=== PATIENT | female | born 1975 | race Caucasian/White ===

== ENCOUNTER 2019-11-30 10:37 | Outpatient (CLI) | payer MEDICARE, MEDICAID, SELFPAY ==
--- NOTE | ~2019-11-30 | MM_ITS ---
EXAMINATION: MM screening mammo BI HISTORY: Screening mammogram TECHNIQUE: Craniocaudal and mediolateral oblique views were performed...... CAD analysis was submitte d and interpreted. COMPARISON: 09/21/2018 bilateral digital screening mammogram 09/29/2017 bilateral diagnostic digital mammogram 03/10/2017 bilateral diagnostic digital mammogram and Limited bilateral breast ultrasound 02/27/2017 bilateral digital screening mammogram BREAST PARENCHYMAL COMPOSITION: The breasts are heterogeneously dense, which may obscure small masses . FINDINGS: Local asymmetries are noted in the upper outer quadrant of the left breast. Diagnostic left mammogram is recommended, with ultrasound if required.. IMPRESSION: 1. Focal asymmetries of upper outer quadrant of left breast 2. Diagnostic left mammogram is recommended, with ultrasound if required BI-RADS Category 0: Incomplete: Needs additional imaging evaluation. Reviewed, dictated and finalized at location A.
== END 2019-11-30 10:38 | disposition home or self-care (01) ==
LOC: ANHIMG 10:45
PROVIDERS: PCP Internal Medicine; Visit Provider Obstetrics & Gynecology Gynecology
DX: Z12.31 Encounter for screening mammogram for malignant neoplasm of breast (principal); R92.8 Other abnormal and inconclusive findings on diagnostic imaging of breast
CPT/HCPCS: 77067

== ENCOUNTER 2019-12-23 12:11 | Outpatient (CLI) | payer MEDICARE, MEDICAID, SELFPAY ==
--- NOTE | ~2019-12-23 | MMUS_ITS ---
EXAMINATION: MM diagnostic mammo unilat LT, US breast LT limited HISTORY: Left breast asymmetry on screening mammogram TECHNIQUE: Additional 3-D tomosynthesis images of the left breast were performed and synthetic 2-D im ages were generated. CAD analysis was submitted and interpreted. High resolution limited left breast ultrasound was performed. COMPARISON: 11/30/2019, 09/21/2018, 09/29/2017, 02/27/2017 FINDINGS: MAMMOGRAPHIC FINDINGS: There is a return to baseline fibroglandular appearance with spot compression of the left breast. No suspicious mass, calcification, or architectural distortion is identified. ULTRASOUND: There is no evidence of focal abnormal solid or cystic lesion in the vicinity of the mammographic fin ding in question. IMPRESSION: 1. No mammographic or sonographic evidence of malignancy. 2. Recommend routine screening mammography in one year. BI-RADS Category 1: Negative Reviewed, dictated and finalized at location A. IMPRESSION: 1. No mammographic or sonographic evidence of malignancy. 2. Recommend routine screening mammography in one year. BI-RADS Category 1: Negative
== END 2019-12-23 12:12 | disposition home or self-care (01) ==
PROVIDERS: PCP Internal Medicine; Visit Provider Internal Medicine
DX: R92.8 Other abnormal and inconclusive findings on diagnostic imaging of breast (principal)
CPT/HCPCS: 76642; 77065

== ENCOUNTER 2020-12-27 10:04 | Outpatient (CLI) | payer MEDICARE, MEDICAID, SELFPAY ==
--- NOTE | ~2020-12-27 | MM_ITS ---
EXAMINATION: MM screening pam BI w madhav HISTORY: Screening TECHNIQUE: Craniocaudal and mediolateral oblique 3-D tomosynthesis images were obtained and synthetic 2-D images were generated. CAD analysis was submitted and interpreted. COMPARISON: Comparison to multiple prior studies sequentially, with oldest reviewed study dated 02/27. BREAST PARENCHYMAL COMPOSITION: There are scattered areas of fibroglandular density. FINDINGS: There is no evidence of suspicious mass, calcification, or architectural distortion to sugg est malignancy in either breast. There has been no suspicious interval change. IMPRESSION: 1. No mammographic evidence of malignancy. 2. Recommend routine screening mammography in one year. BI-RADS Category 1: Negative Reviewed, dictated and finalized at location A.
== END 2020-12-27 10:05 | disposition home or self-care (01) ==
LOC: ANHIMG 10:08
PROVIDERS: PCP Internal Medicine; Visit Provider Obstetrics & Gynecology Gynecology
DX: Z12.31 Encounter for screening mammogram for malignant neoplasm of breast (principal)
CPT/HCPCS: 77063; 77067

== ENCOUNTER 2021-10-15 02:38 | Day surgery (SDC) | payer MEDICARE, MEDICAID, SELFPAY ==
[2021-09-26 13:24] VITALS: BMI 28.4
[2021-10-15 08:05] VITALS: BP 145/62; PULSE 90; RESP 21; TEMP 36.4; O2SAT 100
[2021-10-15] MEDS: LACTATED RINGERS 1,000 ML 150 ML IV CONT (08:27)
--- NOTE | 2021-10-15 08:35 | P.PNAN_ITS ---
Anes - Initial Pre Proc Eval Procedure: Operation Date: 10/15/21 09:00 Proposed Procedures p Esophagogastroduodenoscopy - Mio Espinosa MD Date/Time: 10/15/21 08:35 Surgeon: Mio Espinosa MD Pre Op Diagnosis: dysphagia Patient Data Age: 46 Gender: F Height: 1.52 m Weight: 66.7 kg Last Vital Signs Temp 97.6 F 10/15/21 08:05 Pulse 90 10/15/21 08:05 Resp 21 H 10/15/21 08:05 BP 145/62 H 10/15/21 08:05 Pulse Ox 100 10/15/21 08:05 Allergies Allergy/AdvReac Type Severity Reaction Status Date / Time peanut Allergy Mild Verified 04/25/18 09:24 Cauliflower Allergy Mild Uncoded 04/25/18 09:24 Home Medications Medication Instructions Recorded Confirmed Type Colace 100 mg PO DAILY 09/26/21 09/26/21 History acyclovir 400 mg PO DAILY 09/26/21 09/26/21 History carbamazepine 200 mg PO BID 09/26/21 09/26/21 History Patient hx anesthesia problems: none Family hx anesthesia problems: none Results Review: All pre-operative results and documents have been reviewed as part of the pre-operative evaluation. PMFSH Social History Social History Smoking status: Never smoker Substance use: never Substance use type: does not use Living arrangements: long term Spiritual care concerns: No Anes - Eval Final PreProcedure Day of Procedure 10/15/21 08:35 Patient weight: overweight Heart: regular rate and rhythm Airway: Mallampati scale class II Neurological: alert and oriented Last oral intake: >/= 8 hours ASA classification: III Emergent: no Anesthetic plan: proceed Anesthesia type and monitoring: general GIVS and standard monitoring Results Review: All pre-operative results and documents have been reviewed as part of the pre-operative evaluation. Informed Consent: The patient's anesthetic plan and its attendant risks and benefits were discussed with the patient/family/POA. Questions were solicited and answers provided to the satisfaction of the patient/family/POA.
--- NOTE | 2021-10-15 08:54 | WPDGICN ---
Assessment and Plan Assessment and plan (1) Dysphagia: Code(s): R13.10 - Dysphagia, unspecified Status: Acute Assessment and Plan: EGD with possible biopsy or dilatation or cautery. GI Consult Note Consult date/time: 10/15/21 08:54 HPI: Mariella Lr is a 46 year old female Was been having difficulty swallowing. Recently she had been eating a prep so and could not swallow even saliva, was expect draining thick mucus for several hours and finally a piece of prep so came back up. Another episode Like this happened while eating a burger. the patient is not able to give much history herself. Her mother does not believe that she has had a great the heartburn Review of Systems Review of Systems: All systems reviewed & are unremarkable except as noted in HPI and below PMFSH Social History Social History Smoking status: Never smoker Substance use: never Substance use type: does not use Living arrangements: residential Spiritual care concerns: No Meds Home Medications and Allergies Home Medications Medication Instructions Recorded Confirmed Type Colace 100 mg PO DAILY 09/26/21 09/26/21 History acyclovir 400 mg PO DAILY 09/26/21 09/26/21 History carbamazepine 200 mg PO BID 09/26/21 09/26/21 History Allergies Allergy/AdvReac Type Severity Reaction Status Date / Time peanut Allergy Mild Verified 04/25/18 09:24 Cauliflower Allergy Mild Uncoded 04/25/18 09:24 Vital Signs Vital Signs - 24 hr 10/15/21 08:05 Temperature 36.4 C Pulse Rate 90 Respiratory Rate 21 H Blood Pressure 145/62 H Pulse Oximetry 100 Exam Resp: Auscultation: clear to auscultation bilaterally Cardio: Rate: regular rate Rhythm: regular rhythm GI: GI Palp: Yes Soft to palpation and No Tenderness to palpation present (GI)
[2021-10-15 09:11] VITALS: BP 128/65; PULSE 86; RESP 23; O2SAT 100
[2021-10-15 09:21] VITALS: BP 148/88; PULSE 74; RESP 19; O2SAT 100
[2021-10-15 09:31] VITALS: BP 149/97; PULSE 85; RESP 20; O2SAT 100
== END 2021-10-15 09:40 | disposition home or self-care (01) ==
PROVIDERS: PCP Internal Medicine; Visit Provider Internal Medicine Gastroenterology
PROC: 0DJ08ZZ Inspection of Upper Intestinal Tract, Via Natural or Artificial Opening Endoscopic (ICD-10-PCS; CPT 43235; principal; 2021-10-15 09:00)
DX: R13.19 Other dysphagia (principal); K22.2 Esophageal obstruction; K21.00 Gastro-esophageal reflux disease with esophagitis, without bleeding
CPT/HCPCS: 43239; 43249; 88305; C1726; J2704; J7120

== ENCOUNTER 2022-02-19 10:17 | Outpatient (CLI) | payer MEDICARE, MEDICAID, SELFPAY ==
--- NOTE | ~2022-02-19 | MM_ITS ---
EXAMINATION: MM screening pam BI w madhav HISTORY: Screening mammogram TECHNIQUE: Craniocaudal and mediolateral oblique 3-D tomosynthesis images were obtained and synthetic 2-D images were generated. CAD analysis was submitted and interpreted. COMPARISON: 12/27/2020 bilateral screening mammogram 12/23/2019 diagnostic left mammogram and limited left breast ultrasound examination 11/30/2019, 09/21/2018 bilateral screening mammogram examinations BREAST PARENCHYMAL COMPOSITION: The breasts are heterogeneously dense, which may obscure small masses . FINDINGS: Limited examination due to patient condition, including limited depth particularly on crani ocaudal views. There is no evidence of suspicious mass, calcification, or architectural distortion to suggest malignancy in either breast. There has been no suspicious interval change. IMPRESSION: 1. No mammographic evidence of malignancy. 2. Recommend routine screening mammography in one year. BI-RADS Category 1: Negative Reviewed, dictated and finalized at location A.
== END 2022-02-19 10:18 | disposition home or self-care (01) ==
PROVIDERS: PCP Internal Medicine; Visit Provider Internal Medicine
DX: Z12.31 Encounter for screening mammogram for malignant neoplasm of breast (principal)
CPT/HCPCS: 77063; 77067

== ENCOUNTER 2023-04-11 09:01 | Outpatient (CLI) | payer MEDICARE, MEDICAID, SELFPAY ==
--- NOTE | ~2023-04-11 | MM_ITS ---
EXAMINATION: MM screening mammo BI HISTORY: Screening mammogram TECHNIQUE: Full field digital craniocaudal and mediolateral oblique views of both breasts were obtain ed. CAD analysis was submitted and interpreted. COMPARISON: 02/19/2022, 02/27/2021, 12/23/2019, 11/30/2019 BREAST PARENCHYMAL COMPOSITION: The breasts are heterogeneously dense, which may obscure small masses . FINDINGS: No suspicious mass, calcification, or architectural distortion are identified in either roscoe ast to suggest malignancy. There has been no suspicious interval change. IMPRESSION: 1. No mammographic evidence of malignancy. Recommend routine screening mammography in one year. BI-RADS Category 1: Negative Reviewed, dictated and finalized at location A. IMPRESSION: 1. No mammographic evidence of malignancy. Recommend routine screening mammogra phy in one year. BI-RADS Category 1: Negative
== END 2023-04-11 09:02 | disposition home or self-care (01) ==
LOC: ANHIMG 09:03
PROVIDERS: PCP Internal Medicine; Visit Provider Obstetrics & Gynecology Gynecology
DX: Z12.31 Encounter for screening mammogram for malignant neoplasm of breast (principal)
CPT/HCPCS: 77067

== ENCOUNTER 2023-07-16 01:34 | Day surgery (SDC) | payer MEDICARE, MEDICAID, SELFPAY ==
[2023-06-20 14:01] VITALS: BMI 28.2
--- NOTE | 2023-07-14 11:52 | SUR.PREOP ---
Patient called regarding upcoming procedure. Reviewed preop instructions, appointment times, and procedure prep.
--- NOTE | 2023-07-15 16:14 | PM.HPGS ---
History of Present Illness History of Present Illness Consent: Risks, benefits, and alternatives have been discussed and questions answered. Patient agrees to proceed with procedure. Chief complaint: other fecal abnormalities, Dysphagia unspecified Narrative: Mariella Lr is a 48 year old female with dysphagia for solid food. 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 She also recently performed a Cologuard test which was positive. Review of Systems Review of Systems: All systems reviewed & are unremarkable except as noted in HPI and below [facility] Social History Social History Smoking status: Never smoker Substance use: never Substance use type: does not use Living arrangements: intermediate Additional living arrangements comments: PATIENT WILL BE STAYING WITH MOTHER AND FATHER FOR A COUPLE DAYS BEFORE AND AFTER PROCEDURE Spiritual care concerns: No Meds Home Medications and Allergies Home Medications Medication Instructions Recorded Confirmed Type Colace 100 mg PO PRN 09/26/21 06/20/23 History acyclovir 400 mg tablet 400 mg PO DAILY 09/26/21 06/20/23 History carbamazepine 100 mg chewable 200 mg PO BID 09/26/21 06/20/23 History tablet medroxyprogesterone 150 mg/mL 150 mg IM [id number] 05/27/23 06/20/23 History intramuscular suspension pantoprazole 20 mg tablet,delayed 20 mg PO QAM 05/27/23 06/20/23 History release Allergies Allergy/AdvReac Type Severity Reaction Status Date / Time peanut Allergy Mild Unknown Verified 07/16/23 06:28 Cauliflower Allergy Mild Unknown Uncoded 07/16/23 06:28 Exam Const: General: alert Orientation/consciousness: patient oriented x3 Resp: Auscultation: clear to auscultation bilaterally Cardio: Rhythm: regular rhythm GI: GI Palp: Yes Soft to palpation and No Tenderness to palpation present (GI) Neuro: General: patient oriented x3 Assessment and Plan Assessment and plan (1) Dysphagia: Code(s): R13.10 - Dysphagia, unspecified Status: Acute Assessment and Plan: EGD with possible biopsy or dilatation or cautery. (2) Positive colorectal cancer screening using Cologuard test: Code(s): R19.5 - Other fecal abnormalities Status: Acute Assessment and Plan: Colonoscopy with possible biopsy or polypectomy or cautery or injection of substances.
[2023-07-16 06:32] VITALS: BP 153/79; PULSE 98; RESP 18; TEMP 36.4; O2SAT 98
[2023-07-16] MEDS: MIDAZOLAM HCL (*CRX) 2 MG/2 ML VIAL IV PUSH (06:45)
[2023-07-16] MEDS: LACTATED RINGERS 1,000 ML 150 ML IV CONT (06:49)
--- NOTE | 2023-07-16 07:05 | SUR.PREOP ---
Pt unable to give a urine specimen per mother due to developmental disability. Dr. Yip anesthesiologist notified. No new orders received.
--- NOTE | 2023-07-16 07:07 | WPDANESEPPF ---
Anes - Initial Pre Proc Eval Procedure: Operation Date: 07/16/23 07:30 Proposed Procedures p Esophagogastroduodenoscopy & Colonoscopy - Mio Esipnosa MD Date/Time: 07/16/23 07:07 Surgeon: Mio Espinosa MD Pre Op Diagnosis: other fecal abnormalities, Dysphagia unspecified Patient Data Age: 48 Gender: F Height: 1.52 m Weight: 63.3 kg Last Vital Signs Temp 97.6 F 07/16/23 06:32 Pulse 98 07/16/23 06:32 Resp 18 07/16/23 06:32 BP 153/79 H 07/16/23 06:32 Pulse Ox 98 07/16/23 06:32 O2 Del Method Room Air 07/16/23 06:32 Allergies Allergy/AdvReac Type Severity Reaction Status Date / Time peanut Allergy Mild Unknown Verified 07/16/23 06:28 Cauliflower Allergy Mild Unknown Uncoded 07/16/23 06:28 Home Medications Medication Instructions Recorded Confirmed Type Colace 100 mg PO PRN 09/26/21 06/20/23 History acyclovir 400 mg tablet 400 mg PO DAILY 09/26/21 06/20/23 History carbamazepine 100 mg chewable 200 mg PO BID 09/26/21 06/20/23 History tablet medroxyprogesterone 150 mg/mL 150 mg IM [id number] 05/27/23 06/20/23 History intramuscular suspension pantoprazole 20 mg tablet,delayed 20 mg PO QAM 05/27/23 06/20/23 History release Patient hx anesthesia problems: none Family hx anesthesia problems: none Results Review: All pre-operative results and documents have been reviewed as part of the pre-operative evaluation. [facility] Social History Social History Smoking status: Never smoker Substance use: never Substance use type: does not use Living arrangements: usp Additional living arrangements comments: PATIENT WILL BE STAYING WITH MOTHER AND FATHER FOR A COUPLE DAYS BEFORE AND AFTER PROCEDURE Spiritual care concerns: No Anes - Eval Final PreProcedure Day of Procedure 07/16/23 07:07 Patient weight: overweight Heart: regular rate and rhythm Lungs: clear to auscultation Airway: Mallampati scale class II Neurological: alert and oriented Last oral intake: >/= 8 hours ASA classification: III Emergent: no Anesthetic plan: proceed Anesthesia type and monitoring: general GIVS and standard monitoring Results Review: All pre-operative results and documents have been reviewed as part of the pre-operative evaluation. Informed Consent: The patient's anesthetic plan and its attendant risks and benefits were discussed with the patient/family/POA. Questions were solicited and answers provided to the satisfaction of the patient/family/POA.
--- NOTE | 2023-07-16 07:47 | SUR.OPER ---
EGD: [id number] COLON: Start 742
[2023-07-16 08:02] VITALS: BP 149/82; PULSE 78; RESP 18; O2SAT 99
[2023-07-16 08:12] VITALS: BP 112/80; PULSE 92; RESP 18; O2SAT 91
[2023-07-16 08:22] VITALS: BP 139/95; PULSE 85; RESP 18; O2SAT 95
== END 2023-07-16 08:33 | disposition home or self-care (01) ==
PROVIDERS: PCP Internal Medicine; Visit Provider Internal Medicine Gastroenterology
PROC: 0DJ08ZZ Inspection of Upper Intestinal Tract, Via Natural or Artificial Opening Endoscopic (ICD-10-PCS; CPT 43235; principal; 2023-07-16 07:30)
DX: R19.5 Other fecal abnormalities (principal); K62.1 Rectal polyp; K64.8 Other hemorrhoids; K22.2 Esophageal obstruction
CPT/HCPCS: 43249; 45385; 88305; C1726; J2001; J2250; J2704; J7120

== ENCOUNTER 2024-05-14 08:48 | Outpatient (CLI) | payer MEDICARE, MEDICAID, SELFPAY ==
--- NOTE | ~2024-05-14 | MM_ITS ---
EXAMINATION: MM screening pam BI w madhav HISTORY: Screening TECHNIQUE: Craniocaudal and mediolateral oblique 3-D tomosynthesis images were obtained and synthetic 2-D images were generated. CAD analysis was submitted and interpreted. COMPARISON: Comparison to multiple prior studies sequentially, with oldest reviewed study dated 09/21. BREAST PARENCHYMAL COMPOSITION: Dense: The breasts are heterogeneously dense, which may obscure small masses FINDINGS: There is no evidence of suspicious mass, calcification, or architectural distortion to sugg est malignancy in either breast. There has been no suspicious interval change. IMPRESSION: 1. No mammographic evidence of malignancy. 2. Recommend routine screening mammography in one year. BI-RADS Category 1: Negative Reviewed, dictated and finalized at location B. WORKER
== END 2024-05-14 08:49 | disposition home or self-care (01) ==
LOC: ANHIMG 08:51
PROVIDERS: PCP Internal Medicine; Visit Provider Obstetrics & Gynecology Gynecology
DX: Z12.31 Encounter for screening mammogram for malignant neoplasm of breast (principal)
CPT/HCPCS: 77063; 77067

== ENCOUNTER 2024-08-03 00:56 | Day surgery (SDC) | payer MEDICARE, MEDICAID, SELFPAY ==
[2024-07-19 13:52] VITALS: BMI 28.3
--- OUTSIDE RECORDS SUMMARY | 2024-08-03 00:59 | XMS_ITS | Data Portability ---
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 Performance Test Architect variances may occur. Despite proofreading, typographical errors may occur. Occasional wrong-word or 'bwkho-h-kers' substitutions may have occurred due to the inherent limitations of voice recording. Read the chart carefully and recognize, using context, where substitutions have occurred. Not available 10/16/2023 10:03:42 01/01/2024 01/01/2024 This note is dictated and transcribed by [email or web address]. Performance Test Architect variances may occur. Despite proofreading, typographical errors may occur. Occasional wrong-word or 'xlkjl-h-vvqw' substitutions may have occurred due to the inherent limitations of voice recording. Read the chart carefully and recognize, using context, where substitutions have occurred. Not available 01/01/2024 09:59:34 03/11/2024 03/11/2024 This note is dictated and transcribed by [email or web address]. Performance Test Architect variances may occur. Despite proofreading, typographical errors may occur. Occasional wrong-word or 'gzsbc-e-kupb' substitutions may have occurred due to the inherent limitations of voice recording. Read the chart carefully and recognize, using context, where substitutions have occurred. Not available 03/11/2024 10:40:14 05/18/2024 05/18/2024 This note is dictated and transcribed by [employer]Modal [employer] Software. Performance Test Architect variances may occur. Despite proofreading, typographical errors may occur. Occasional wrong-word or 'nzxko-s-qzao' substitutions may have occurred due to the inherent limitations of voice recording. Read the chart carefully and recognize, using context, where substitutions have occurred. lexie Not available 05/18/2024 10:08:11 07/27/2024 07/27/2024 This note is dictated and transcribed by [employer] Direct Software. Performance Test Architect variances may occur. Despite proofreading, typographical errors may occur. Occasional wrong-word or 'irqko-r-rfnf' substitutions may have occurred due to the inherent limitations of voice recording. Read the chart carefully and recognize, using context, where substitutions have occurred. lexie Not available 07/27/2024 10:40:56 Plan of Treatment Reminders Order Date Submit Date Provider Last Modified By Organization Details Last Modified Time Details Appointments Establish ed Patient 15 2024 09:00A M Ariel Cordova DPM Not available Not available Not available Establish ed Patient 15 2024 09:00A M Airel Cordova DPM Not available Not available Not available Lab None recorded. Referral None recorded. Procedures None recorded. Surgeries None recorded. Imaging None recorded. Medication Orders None recorded. Patient TargetsNo targets recorded. Patient InstructionsNo instructions recorded. Reason for Referral None Reported. Problems Name Problem SNOMED Code Status Onset Date Resolution Date Notes Provider Name and Address Organization Details Recorded Time Foot callus 093781075 Active 2022 Ariel Cordova DPM [address] [facility] [address], [place], [address] , [facility] [employer] 3 09:46:49 Seizure disorder 929625742 Active Not Available [facility] 3 03:06:17 Dry skin 22917918 Active 2018 Not Available [facility] 3 03:06:17 Mammography abnormal 077629943 Active Not Available [facility] 3 03:06:17 Rigid flat foot 023084702 Active Not Available [facility] 3 03:06:17 Intellectual functioning disability 084527290 Active Not Available [facility] 3 03:06:17 On examination - rash present Active Not Available [facility] 3 03:06:17 Bronchitis 82274779 Active Not Available [facility] 3 03:06:17 Ingrowing toenail 859838793 Active 2018 Not Available [facility] 3 03:06:17 Onychomycosis 171617040 Active 2019 Not Available [facility] 3 03:06:17 Anxiety 49558209 Active Not Available [facility] 3 03:06:17 Upper respiratory infection 95444293 Active Not Available [facility] 3 03:06:17 Tinea pedis 6753675 Active 2020 Not Available [facility] 3 03:06:17 Allergic rhinitis 01555240 Active Not Available [facility] 3 03:06:18 Herpes simplex 45770431 Active Not Available [facility] 3 03:06:18 Conjunctiviti s 5838208 Active Not Available [facility] 3 03:06:18 Dystrophia unguium 88378184 Active 2023 Ariel Cordova DPM [address], [place], [address] , [employer] 4 10:03:47 Congenital pes planus 31549254 Active 2023 Ariel Cordova DPM [address], [place], [address] , [facility] 4 10:03:55 Unable to cut own toenails 997315446 Active 2023 Ariel Cordova DPM [address], [place], [address] , [facility] 4 09:59:47 Problem Notes None recorded. Procedures Surgical History Date Name Laterality Status Provider Name and Address Organization Details Recorded Time 5 Nail Debridement completed Ariel Cordova DPM [address], [place], [address], [facility] 07/27/2024 10:40:50 4 Nail Debridement completed Ariel Cordova DPM [address], [place], [address], [facility] 05/18/2024 10:08:01 4 Nail Debridement completed Ariel Cordova DPM [address], [place], [address], [facility] 03/11/2024 10:40:00 4 Nail Debridement completed Ariel Cordova DPM [address], [place], [address], [place] [facility] [place] [facility] 01/01/2024 09:59:26 4 Nail Debridement completed Ariel Cordova DPM [address], [place], [address], [facility] 10/16/2023 10:04:51 4 Nail Debridement completed Ariel Cordova DPM [address], [place], [address], [facility] 07/28/2023 09:43:58 3 Nail Debridement completed Ariel Cordova DPM [address], [place], [address], [place] [facility] 05/12/2023 09:29:20 3 Nail Debridement completed Ariel Cordova DPM [address], [place], [address], [facility] [place] [facility] 03/06/2023 09:32:17 3 Nail Debridement completed Ariel Cordova DPM [address], [place], [address], [facility] 01/02/2023 09:49:52 3 Nail Debridement completed Ariel Cordova DPM [address], [place], [address], [facility] 10/31/2022 09:36:21 3 Nail Debridement completed Ariel Cordova DPM [address], [place], [address], [facility] [employer] 08/29/2022 09:46:18 Imaging Results None recorded. Procedure Notes None recorded. Medical Equipment None Reported. Allergies Allergen ID Allergen Name Allergen Category Reaction Reaction Severity Criticality Documentation Date Start Date Code Code System Note Provider Name and Address Organization Details Recorded Time 5421 peanut oil food,medi cation Not available Not available Not available 08/07/2022 18540 RxNorm Not Available [facility] 3 03:12:36 5422 cauliflow er allergeni c extract food Not available Not available Not available 08/07/2022 29361 1 RxNorm Not Available [facility] 3 03:12:36 Medications Name Sig Start Date Stop Date Status Note LastModified by Organization Details LastModified Time amoxicill in 500 mg capsule active Not Available Not Available Not Available prednison e 10 mg tablet Take by oral route. active please give liquid equivale nt Not Available Not Available Not Available ammonium lactate 12 % lotion Apply to calluses of feet 1-2 times daily active Not Available Not Available No t Available ofloxacin 0.3 % eye drops 10/15 completed Not Available Not Available Not Available vitamin A and D topical ointment 2018 active Not Available Not Available Not Avai lable Milk of Magnesia 400 mg/5 mL oral suspensio n 10/15 completed Not Available Not Available Not Available Zithromax Z-Julio 250 mg tablet Take 2 TABLEts the first day then 1/day 01/10 completed Not Available Not Available Not Available bacitraci n 500 unit/gram topical ointment 03/26 completed Not Available Not Available Not Available bacitraci n zinc 500 unit/gram topical ointment active Not Available Not Available Not Available prednison e 5 mg/5 mL oral solution 10/15 completed Not Available Not Available Not Available acyclovir 400 mg tablet Take 1 tablet every day by oral route for 10 days. active Not Available Not Available No t Available sulfameth oxazole 800 mg-trimet hoprim 160 mg tablet 01/21 completed Not Available Not Available Not Available acyclovir 800 mg tablet active Not Available Not Available Not Available pantopraz ole 20 mg tablet,de layed release active Not Available Not Available Not Available amoxicill in 250 mg chewable tablet TAKE 2 TABLETS BY MOUTH THREE TIMES DAILY FOR 20 DAYS 10/15 completed Not Available Not Available Not Available amoxicill in 250 mg/5 mL oral suspensio n active Not Available Not Available Not Available benzonata te 100 mg capsule TAKE 1 CAPSULE BY MOUTH THREE TIMES DAILY FOR COUGH 10/15 completed Not Available Not Available Not Available hydrocort isone 1 % topical cream APPLY TOPICALL Y TO MINOR RASH NEEDED UP TO 4 X DAILY NOTIFY RN IF USED MORE THAN 48 HOURS 10/15 completed Not Available Not Available Not Available nystatin 100,000 unit/gram topical cream APPLY TO THE AFFECTED AREA(S) BY TOPICAL ROUTE 2 TIMES PER DAY 10/15 completed Not Available Not Available Not Available clotrimaz ole-betam ethasone 1 %-0.05 % topical cream 10/15 completed Not Available Not Available Not Available carbamaze pine 100 mg chewable tablet active Not Available Not Available Not Available Mapap (acetamin ophen) 325 mg tablet 10/15 completed Not Available Not Available Not Available docusate sodium 100 mg capsule Take 1 capsule every day by oral route. active Not Available Not Available No t Available Banophen 25 mg capsule 01/10 completed Not Available Not Available Not Available hydrocort isone 2.5 % topical cream APPLY TO THE AFFECTED AREA(S) BY TOPICAL ROUTE ONCE DAILY 10/15 completed Not Available Not Available Not Available lorazepam 1 mg tablet to take one tablet prior to dental appt active Not Available Not Available No t Available diazepam 10 mg tablet TAKE 1 TAB BY MOUTH 30 MIN PRIOR TO DENTAL WORK 10/15 completed Not Available Not Available Not Available epinephri ne 0.3 mg/0.3 mL injection , auto-inje ctor active Not Available Not Available Not Available azithromy judy 200 mg/5 mL oral suspensio n 10/15 completed Not Available Not Available Not Available Robafen 100 mg/5 mL oral liquid Take 10 mL every 4 hours by oral route for 7 days. active Not Available Not Available No t Available Tegretol 200 mg tablet Take 1 tablet every 12 hours by oral route. 12/31 completed Not Available Not Available Not Available ibuprofen 100 mg/5 mL oral suspensio n 10/15 completed Not Available Not Available Not Available ketoconaz ole 2 % topical cream apply to the affected toenails daily active Not Available Not Available No t Available fluticaso ne propionat e 50 mcg/actua tion nasal spray,radha pension Inhale 2 sprays every day by intranas al route in the evening. 10/15 completed Not Available Not Available Not Available clotrimaz ole 1 % topical cream APPLY TO THE AFFECTED AND SURROUND ING AREAS OF SKIN BY TOPICAL ROUTE 2 TIMES PER DAY IN THE MORNING AND EVENING active Not Available Not Available No t Available medroxypr ogesteron e 150 mg/mL intramusc ular suspensio n 01/21 completed Not Available Not Available Not Available diazepam 5 mg tablet TAKE 2 TABLET BY MOUTH X 1 PRIOR TO DENTAL VISIT. active Not Available Not Available No t Available Children' s Sudafed 15 mg/5 mL oral liquid TAKE 20ML (60MG) EVERY 6 HOURS NEEDED FOR CONGESTI ON. 10/15 completed Not Available Not Available Not Available Mucinex 600 mg tablet, extended release Take 1 tablet twice a day by oral route. active the equivale nt robituss in 10 cc q 4 DS aware Not Available Not Available Not Available medroxypr ogesteron e 150 mg/mL intramusc ular syringe active Not Available Not Available Not Available PreviDent 5000 Plus 12/31 completed Not Available Not Available Not Available Nizoral 12/31 completed Not Available Not Available Not Available Cetaphil active Not Available Not Avai lable Not Available sodium fluoride 1.1 % dental paste active Not Available Not Available Not Available neomycin 1.75 mg-polymy erick 10,000 unit-gram icidin 0.025mg/m L eye drops Apply 3 drops 4 times a day by ophthalm ic route. 10/15 completed Not Available Not Available Not Available Children' s Cleo Allergy 30 mg/5 mL oral suspensio n TAKE 10 ML EVERY 12 HOURS. 10/15 completed Not Available Not Available Not Available [facility] COVID-19 Vaccine (PF) 30 mcg/0.3 mL IM susp (purple) PHARMACY ADMINIST ERED 10/15 completed Not Available Not Available Not Available Vitals Date Recorded Body height Heart rate Respiratory rate Oxygen saturation Oxygen saturation in Arterial blood by Pulse oximetry Provider Name and Address Organization Details Last Updated DateTime 4 149.86 cm 79 /min 14 /min 98 % 98 % Tash Jay [employer] [facility] [employer] [facility] 4 09:23:04 Date Recorded Body height Body mass index (BMI) Body weight Respiratory rate Heart rate Body temperature Oxygen saturation Oxygen saturation in Arterial blood by Pulse oximetry Systolic blood pressure Diastolic blood pressure Provider Name and Address Organization Details Last Updated DateTime 4 149.86 cm 29.3 kg/m2 45795.8 9 g 14 /min 100 /min 98 [degF] 98 % 98 % 130 mm[Hg] 80 mm[Hg] Frida Fernando [facility] [employer] [facility] 4 09:44:38 Date Recorded Body height Body mass index (BMI) Body weight Heart rate Respiratory rate Oxygen saturation Oxygen saturation in Arterial blood by Pulse oximetry Provider Name and Address Organization Details Last Updated DateTime 4 149.86 cm 29.3 kg/m2 31637.8 9 g 89 /min 14 /min 98 % 98 % Tash Thompson [employer] [facility] [employer] [facility] 4 09:49:29 Date Recorded Body height Body mass index (BMI) Body weight Heart rate Respiratory rate Oxygen saturation Oxygen saturation in Arterial blood by Pulse oximetry Provider Name and Address Organization Details Last Updated DateTime 4 149.86 cm 29.3 kg/m2 78578.8 9 g 82 /min 14 /min 98 % 98 % Tash Thompson [employer] [facility] [employer] [facility] 4 09:43:03 Date Recorded Body height Heart rate Respiratory rate Body temperature Oxygen saturation Oxygen saturation in Arterial blood by Pulse oximetry Systolic blood pressure Diastolic blood pressure Provider Name and Address Organization Details Last Updated DateTime 5 149.86 cm 105 /min 15 /min 98 [degF] 99 % 99 % 136 mm[Hg] 97 mm[Hg] Ava Rick[employer] [facility] [employer] [facility] 5 10:24:48 Social History None recorded. Functional Status None recorded. Mental Status None recorded. Family History Relationship Description Onset Age of this Age Resolved Age Notes LastModified by Organization Details LastModified Time Father Malignant tumor of prostate [id number] Not available 12/08 09:45:27 Medical History Condition Response SEIZURES/EPILEPSY Y HERPES Y Gynecological HistoryNo gynecological history recorded. Obstetrics History GPAL:G 0 P 0 0 0 0 Past Encounters Encounter ID Performer Location Encounter Start Date Encounter Closed Date Diagnosis/Indication Diagnosis SNOMED-CT Code Diagnosis ICD10 Code Diagnosis Note [id number] [facility] [address] [place] [address] 09/14/2020 00:00:00 09/15/2020 11:09:34 [id number] [facility] [address] [place] [address] 11/16/2020 00:00:00 11/17/2020 08:16:02 [id number] [facility] [address] [place] [address] 01/11/2021 00:00:00 01/11/2021 10:17:22 [id number] [facility] [address] [place] [address] 03/26/2021 00:00:00 03/27/2021 07:37:57 [id number] [facility] [address] [place] [address] 05/28/2021 00:00:00 05/28/2021 10:38:15 [id number] [facility] [address] [place] [address] 08/02/2021 00:00:00 08/03/2021 10:09:09 [id number] [facility] [address] [place] [address] 10/04/2021 00:00:00 10/04/2021 10:40:58 [id number] [facility] [address] [place] [address] 12/06/2021 00:00:00 12/06/2021 10:39:19 [id number] [facility] [address] [place] [address] 01/31/2022 00:00:00 02/03/2022 11:50:24 [id number] [facility] [address] [place] [address] 2022 00:00:00 2022 10:28:03 [id number] [facility] [address] [place] [address] 06/20/2022 00:00:00 06/20/2022 09:49:02 [id number] Ariel Cordova DPM [facility] [place] [address] [place] [address] 08/29/2022 09:20:34 08/29/2022 11:27:31 Onychomycosis 623281321 B35.1 Z74.1 Continue ketoconazo le topicallyN ails debrided without incidentFo llow-up in 2 months Foot callus 092381099 L8 4 continue supportive shoe gearApply Amlactin daily twiceeduca ivy on use of pumice stoneIn follow-up as needed [id number] Ariel Cordova DPM [facility] [place] [address] [place] [address] 10/31/2022 09:17:25 10/31/2022 09:41:26 Onychomycosis 645105272 B35.1 Z74.1 Continue ketoconazo le topicallyN ails debrided without incidentFo llow-up in 2 months Foot callus 211943932 L8 4 continue orthotics [id number] [facility] [place] [address] [place] [address] 01/02/2023 09:35:32 01/02/2023 10:11:49 Onychomycosis 142907631 B35.1 Z74.1 Continue ketoconazo le topicallyN ails debrided without incidentFo llow-up in 2 months Foot callus 829353687 L8 4 continue orthotics [id number] Ariel Cordova DPM [facility] [place] [address] [place] [address] 03/06/2023 09:10:58 03/06/2023 09:43:56 Onychomycosis 536143332 B35.1 Z74.1 Continue ketoconazo le topicallyN ails debrided without incidentFo llow-up in 2 months Foot callus 814937276 L8 4 continue orthotics [id number] Ariel Cordova DPM [facility] [place] [address] [place] [address] 05/12/2023 09:07:03 05/12/2023 10:05:04 Onychomycosis 333106033 B35.1 Z74.1 Continue ketoconazo le topicallyN ails debrided without incidentFo llow-up in 2 months [id number] Ariel Cordova DPM [facility] [place] [address] [place] [address] 07/28/2023 09:08:19 07/28/2023 09:52:08 Onychomycosis 261523546 B35.1 Z74.1 Continue ketoconazo le topicallyN ails debrided without incidentFo llow-up in 2 months Unable to cut own toenails 003619721 Z74.1 [id number] Ariel Cordova DPM [facility] [place] [address] [place] [address] 10/16/2023 09:14:39 10/16/2023 10:19:53 Foot callus 697270063 L84 no significan t callusing todayconti nue orthopedic shoes and insoles Congenital pes planus 23 699357 Q66.51 Q66.52 recommend orthopedic shoes and insoles Dystrophia unguium 53866 009 L60.3 nails debrided without incidentfo llow-up 2-3 months as needed Unable to cut own toenails 314210136 Z74.1 secondary to intellectu al functional disability [id number] Ariel Cordova DPM [facility] [place] [address] [place] [address] 01/01/2024 09:31:08 01/01/2024 13:39:16 Onychomycosis 744669073 B35.1 Z74.1 Continue over-the-c ounter topical medication Nails debrided without incidentFo llow-up in 2 months Dystrophia unguium 21474 009 L60.3 nails debrided without incidentfo llow-up 2-3 months as needed Unable to cut own toenails 901221579 Z74.1 secondary to intellectu al functional disability [id number] Ariel Cordova DPM [facility] Podiatry [address], [address] [address] 03/11/2024 09:42:19 03/12/2024 12:44:25 Dystrophia unguium 90443229 L60.3 nails debrided without incidentfo llow-up 2-3 months as needed Unable to cut own toenails 324707993 Z74.1 secondary to intellectu al functional disability [id number] Ariel Cordova DPM [facility] Podiatry [address], [address] [address] 05/18/2024 09:38:23 06/04/2024 15:10:49 Dystrophia unguium 35629295 L60.3 nails debrided without incidentfo llow-up 2-3 months as needed Unable to cut own toenails 164288143 Z74.1 secondary to intellectu al functional disability [id number] Ariel Cordova DPM [facility] [address] [place] [address] 07/27/2024 10:12:40 07/27/2024 10:58:25 Dystrophia unguium 85831919 L60.3 nails debrided without incidentfo llow-up 2-3 months as needed Unable to cut own toenails 369954815 Z74.1 secondary to intellectu al functional disability Health Concerns Section Related Observation LastModified by Organization Detai ls LastModified Time None Recorded Concern Status LastModified by Organization Details LastModified Time None Recorded Advance Directives Directive None Recorded Payers Encounter Date Sequence Insurance Name Policy Number Policy Boyd Covered Member ID Boyd Member ID Guarantor Name 10/16/2023 1 [place] Mariella B Clemmons [id number] Mariella B Be 10/16/2023 2 [place] OR MEDIC[place] REPLACEMENT PRIMARY) Mariella B Be [id number] Mariella B Clemmons 01/01/2024 1 [place] Mariella B Be [id number] Mariella B Clemmons 01/01/2024 2 [place]PLACEMENT [place]) Mariella B Clemmons [id number] Mariella B Clemmons 03/11/2024 1 [place] Mariella B Be [id number] Mariella B Be 03/11/2024 2 [place]PLACEMENT [place]) Mariella B Clemmons [id number] Mariella B Be 05/18/2024 1 [place] Mariella B Be [id number] Mariella B Be 05/18/2024 2 [place] REPLACEMENT PRIMARY) Mariella B Clemmons [id number] Mariella B Be 07/27/2024 1 [place] Mariella B Be [id number] Mariella B Clemmons 07/27/2024 2 [place]IC[place] REPLACEMENT PRIMARY) Mariella B Be [id number] Mariella B Clemmons Notes Date Note Type Note Provider Name and Address Organization Details Recorded Time 10/16/2023 text/html . Patient is a 48-year-old female with intellectual disabilities to which he stays in a facility her mother brings her to the office today for routine foot care. Patients mother states that she needs new shoes. Patient has congenital pes planus foot deformity with history of callusing but no open wounds. Patient at times has pain with walking. Patient does not Dorian having any pain today. Patient denies any other complaints. Ariel Cordova, RAFAELA [address] [place] [address], [place], [address], [place] 10/16/2023 10:07:26 01/01/2024 text/html . Patient is a 48-year-old female who presents the office with her mother for follow-up on routine foot care. Patient is unable to cut her toenails as she presents from a jail facility due to mental disability. Patient mother denies any new complaints with the patient. Ariel Cordova DPM [address], [place], [address], [place] 01/01/2024 10:00:22 03/11/2024 text/html . Patient is a 48-year-old female who presents the office with her mother for follow-up on routine foot care patient's mother denies any new complaints for daughter and states her nails are thick and long. Patient mother denies any other complaints. Ariel Cordova DPM [address], [place], [address], [employer] qualifyor 03/11/2024 10:40:33 05/18/2024 text/html . Patient is a 49-year-old female mental disability she presents with her mother for routine foot care. Patient denies any other complaints. Mother also denies any other complaints for her daughter and would like her nails cut as they are unable to perform this on her. Ariel Cordova DPM [address], [place], [address], [employer] qualify[employer] 05/18/2024 10:08:27 07/27/2024 text/html . Patient is a 49-year-old female who returns the office with her mother for complaints of elongated toenails. Patient mother denies any other pedal complaints for her daughter. Patient is currently mentally disabled and unable to care for her feet. Patient denies any other complaints. Ariel Cordova DPM [address], [place], [address], [place]andelion [facility] qualifyor 07/27/2024 10:41:19 OBGyn Episode No OBEpisode recorded.
--- OUTSIDE RECORDS SUMMARY | 2024-08-03 00:59 | XMS_ITS | Referral Summary ---
Author Organization [facility] [address] Address [address] [place] [address] Care Team Providers Care Career Information Specialist Name Role Phone Yandel Weaver MD Primary Care Provider [phone] Encounters Date Type Department Care Team Description 07/22/2024 Orders Only [facility] [address] [phone] Brittany Marroquin [place] 06/10/2024 Telephone [facility] [address] [phone] Yandel Weaver MD 05/27/2024 Orders Only [facility] [address] [phone] Brittany Marroquin [place] 05/26/2024 Telephone [facility] [address] [phone] Brittany Marroquin MT 05/14/2024 Orders Only [facility] [address] [phone] Yandel Weaver MD from Last 3 Months Allergies Active Allergy Reactions Criticality Noted Date Comments Cauliflower Rash Medium 01/27/2023 Peanut Unknown 02/24/2020 Medications acyclovir (ZOVIRAX) 400 mg tablet Take 400 mg by mouth daily 08/01/202 1 Active carBAMazepine (TEGretol) 100 mg chewable tablet 1 Active medroxyPROGEST ERone 150 mg/mL injection [address] (PROTONIX) 20 mg EC tablet Take 1 tablet (20 mg total) by mouth daily 30 tablet 1 1 Active docusate (COLACE) liquid 50 mg/5 mLIndications: constipation Take 10 mL (100 mg total) by mouth daily Please d/c the pill form 30 mL 2 Active nystatin cream nystatin 100,000 unit/gram topical cream Active neomycin-polym yxin-gramicidi n (NEOSPORIN) ophthalmic solution neomycin 1.75 mg-polymyxin 10,000 unit-gramicidin 0.025mg/mL eye drops Active magnesium hydroxide (MILK OF MAGNESIA) suspension 400 mg/5 mL Milk of Magnesia 400 mg/5 mL oral suspension Active ketoconazole (NIZORAL) 2 % cream ketoconazole 2 % topical cream apply to the affected toenails daily Active ibuprofen (ADVIL,MOTRIN) suspension 100 mg/5 mL ibuprofen 100 mg/5 mL oral suspension Active hydrocortisone 2.5 % cream hydrocortisone 2.5 % topical cream APPLY TO THE AFFECTED AREA(S) BY TOPICAL ROUTE ONCE DAILY Active hydrocortisone 1 % cream hydrocortisone 1 % topical cream APPLY TOPICALLY TO MINOR RASH NEEDED UP TO 4 X DAILY NOTIFY RN IF USED MORE THAN 48 HOURS Active LORazepam (ATIVAN) 1 mg tablet Take 30 minutes prior to procedure. May repeat in 1 hour if needed 2 tablet 4 Active Active Problems Problem Noted Date Diagnosed Date Seizure disorder (CMS/HCC) 02/03/2024 Other fatigue 02/03/2024 Upper respiratory tract infection 08/30/2021 Assessment & Plan (08/30/2021 4:05 PM CDT): Will treat with Amoxil 500mg chewable tablets TID x 10d Tessalon pearls TID PRN Mental disability 01/18/2021 Assessment & Plan (01/18/2021 10:37 AM CDT): Doing well will continue present Rx. She is currently residing in a fpc and doing well. Immunizations Immunization Administration Dates Next Due Flucelvax Influenza Quad 04/07/2024 Influenza, Quadrivalent, Spl it, Intramuscular 03/28/2020,04/03/2016 Influenza, Quadrivalent, Spl it, Preservative Free, Intramuscular 03/13/2021,04/10/2018,04/10/2017 Pfizer SARS-CoV-2 Monovalent Vaccination (12+ Yrs) PURPLE 07/26/2020,07/05/2020 Pfizer Sars-Cov-2 Bivalent V accination (12+ YRS) 04/07/2024 Social History Tobacco Use Types Packs/Day Years Used Date Smoking Tobacco: Never Tobacco Cessation:Counseling Given: Not Answered Personal Safety Answer Date Recorded Getting School Help Needed Not on file 06/05 Comments Unknown Sex and Gender Information Value Date Recorded Sex Assigned at Not on file Legal Sex Female 10:29 PM SUPERVISOR CUTTING AND BONING Gender Identity Female 01/19/2022 6:30 AM CDT Sexual Orientation Straight 01/19/2022 6: 30 AM CDT Last Filed Vital Signs Vital Sign Reading Time Taken Comments Blood Pressure 140/94 02/03/2024 9:46 AM CDT Pulse 89 02/03/2024 9:46 AM CDT Temperature 36.9 C (98.4 F) 08/07/2022 10:31 AM SUPERVISOR [employer]UTTING [employer] BONING Respiratory Rate 18 08/07/2022 10:31 AM SUPERVISOR [employer]TING [employer] BONING Oxygen Saturation 97% 08/07/2022 10:31 AM SUPERVISOR [employer]TING [employer] BONING Inhaled Oxygen Concentration - - Weight 65.3 kg (144 lb) 02/03/2024 9:46 AM CDT Height 152.4 cm (5') 02/03/2024 9:46 AM CDT Body Mass Index 28.12 02/03/2024 9:46 AM CDT Plan of Treatment Not on file Procedures Procedure Name Priority Date/Time Associated Diagnosis Comments SCAN - RADIOLOGY/IMAGING 05/14/2024 9:39 AM SUPERVISOR CUTTING [employer] BONING SCREENING MAMMOGRAM 2D BILATERAL Schedule Routine, Read Routine (OP Routine) 01/18/2021 from Last 3 Months or Most Recently Relevant to Health Maintenance Results * SCAN - RADIOLOGY/IMAGING (05/14/2024 9:39 AM SUPERVISOR CUTTING [employer] BONING) Anatomical Region Laterality Modality Other Yandel Weaver MD Final Result * Screening Mammogram 2D Bilateral (01/18/2021) Anatomical Region Laterality Modality Breast Bilateral Mammography Narrative 01/18/[address] butt Historical Provider MD MAK MAMMO PROCEDURES Kim l Result from Last 3 Months or Most Recently Relevant to Health Maintenance Insurance MEDICARE MEDICARE IDPA MEDICARE Care Teams Career Information Specialist Relationship Specialty Start Date End Date Yandel Weaver MD [address] [facility] [address] [place] [address] PCP - General Internal Medicine 02/24/20
--- OUTSIDE RECORDS SUMMARY | 2024-08-03 00:59 | XMS_ITS | Continuity of Care Document ---
Author Organization [facility] Address [address] [place] [address] [place] [address] Phone Care Team Providers Care Freight Broker Name Role Phone Fernandez OD, Frankie Unavailable Unavailable Procedures Procedure Date Eye Exam & Treatment Refraction Office/outpatient Visit, Est Eye Exam & Treatment Eye Exam & Treatment Advance Directives Directive Yes / No Effective Date File Name No Information Encounters Encounter Description Practice Location Reason(s) For Visit Diagnoses Date Provider Providers Copied on Encounter [facility], [address] [place] [address] [address], [place], [place], [id number], [place] tel:[phone] [facility] No Information 2-201 0 Fernandez OD Frankie. [address], [place], [place], [facility], . tel:[phone] Office/outpat ient Visit, Est [facility], [address] [place] [address] [address], [place], [place], [id number], [place] tel:[phone] [facility] No Information 1-201 0 Fernandez OD Frankie. [address] , [address], [place], [place], [facility], . tel:[phone] [facility], [id number] [place] [address] [address], [place], [place], [id number], [place] tel:[phone] [facility] No Information 3-200 9 Gomez Purvi. [address] , [address], [place], [address], [place]. tel:[phone] [facility], [address], [place], [place], [id number], [place] tel:[phone] [facility] No Information 8 Patricia Loja. [address] , [address], [place], [address], [place]. tel:[phone] Family History Family Member Type Diagnosis Age At Onset No Information Payers Payer name Insurance type Covered alliance party ID Authormarciea tidayne(s) Medicaid [facility] [id number] Social History Type Description Quantity Date Captured Comments Sex Female Smoking Status No Information Chief Complaint And Reason For Visit No Information Reason For Referral Reason For Referral No Information History Of Present Illness Encounter Date Complaint History Of Prese nt Illness No Information Functional Status Date Functional Assessmen t No Information Instructions Date Instruction Additional Infor mation No Information Assessments Type Assessment Date No Information Patient Care Teams Name Effective Dates (start - stop) Status Members No Information
--- OUTSIDE RECORDS SUMMARY | 2024-08-03 00:59 | XMS_ITS | Clinical Summary ---
Author Organization [facility] [address] Address [address] [place] [address] Care Team Providers Care Labor Service Representative Name Role Phone Yandel Weaver MD Primary Care Provider [phone] Allergies Active Allergy Reactions Criticality Noted Date Comments Cauliflower Rash Medium 01/27/2023 Peanut Unknown 02/24/2020 Medications acyclovir (ZOVIRAX) 400 mg tablet Take 400 mg by mouth daily 1 Active carBAMazepine (TEGretol) 100 mg chewable [...] in 1 hour if needed 2 tablet Active Active Problems Problem Noted Date Diagnosed Date Seizure disorder (CMS/HCC) 02/03/2024 Other fatigue 02/03/2024 Upper respiratory tract infection 08/30/2021 Assessment & Plan (08/30/2021 4:05 PM CDT): Will treat with Amoxil 500mg chewable tablets TID x 10d Tessalon pearls TID PRN Mental disability 01/18/2021 Assessment & Plan (01/18/2021 10:37 AM CDT): Doing well will continue present Rx. She is currently residing in a shelter and doing well. Encounters Date Type Department Care Team Description 07/22/2024 Orders Only [facility] [address] [place] [phone] Brittany Marroquin MA 06/10/2024 Telephone [facility] [address] [place] [phone] Yandel Weaver MD 05/27/2024 Orders Only [facility] [address] [place] [phone] Brittany Marroquin MA 05/26/2024 Telephone [facility] [address] [place] [phone] Brittany Marroquin MA 05/14/2024 Orders Only [facility] [address] [place] [phone] Yandel Weaver MD from Last 3 Months Immunizations Immunization Administration Dates Next Due Flucelvax Influenza Quad 04/07/2024 Influenza, Quadrivalent, Spl it, Intramuscular 03/28/2020,04/03/2016 Influenza, Quadrivalent, Spl it, Preservative Free, Intramuscular 03/13/2021,04/10/2018,04/10/2017 Pfizer SARS-CoV-2 Monovalent Vaccination (12+ Yrs) PURPLE 07/26/2020,07/05/2020 Pfizer Sars-Cov-2 Bivalent V accination (12+ YRS) 04/07/2024 Medical History Medical History Date Comments Anxiety Family History Medical History Relation Name Comments Cancer Father Hyperlipidemia Father Hypertension Father No Known Problems Mother Relation Name Status Comments Father Mother Social History Tobacco Use Types Packs/Day Years Used Date Smoking Tobacco: Never Tobacco Cessation:Counseling Given: Not Answered Personal Safety Answer Date Recorded Getting School Help Needed Not on file 06/05 Comments Unknown Sex and Gender Information Value Date Recorded Sex Assigned at Not on file Legal Sex Female 10:29 PM ENGLISH COMPOSITION INSTRUCTOR Gender Identity Female 01/19/2022 6:30 AM CDT Sexual Orientation Straight 01/19/2022 6: 30 AM CDT Obstetrics History Last Filed Vital Signs Vital Sign Reading Time Taken Comments Blood Pressure 140/94 02/03/2024 9:46 AM CDT Pulse 89 02/03/2024 9:46 AM CDT Temperature 36.9 C (98.4 F) 08/07/2022 10:31 AM ENGLISH COMPOSITION INSTRUCTOR Respiratory Rate 18 08/07/2022 10:31 AM ENGLISH COMPOSITION INSTRUCTOR Oxygen Saturation 97% 08/07/2022 10:31 AM ENGLISH COMPOSITION INSTRUCTOR Inhaled Oxygen Concentration - - Weight 65.3 kg (144 lb) 02/03/2024 9:46 AM CDT Height 152.4 cm (5') 02/03/2024 9:46 AM CDT Body Mass Index 28.12 02/03/2024 9:46 AM CDT Plan of Treatment Health Maintenance Due Date Last Done Comments Cervical Cancer Screening 1975 Depression Screening 1975 Hepatitis C Screening 1975 DTaP/Tdap/Td Vaccine (1 - Tdap) 1986 Hepatitis B Screening 1993 Regular Well Visit/Exam 18-64 01/18/2022 01/18/2021 Breast Cancer Screening-Mammogram 04/11/2024 04/11/2023, 01/18/2021 Covid-19 Vaccine ( season) 2024 04/07/2024, 12/06/2021, 05/10/2021, Additional history exists Colon Cancer Screening-Colonoscopy 07/16/2033 07/16/2023 Influenza Vaccine Completed 04/07/2024, , 03/28/2020, Additional history exists Pneumococcal vaccine <65 Aged Out No longer eligible based on patient's age to complete this topic Procedures Procedure Name Priority Date/Time Associated Diagnosis Comments SCAN - RADIOLOGY/IMAGING 05/14/2024 9:39 AM ENGLISH COMPOSITION INSTRUCTOR SCREENING MAMMOGRAM 2D BILATERAL Schedule Routine, Read Routine (OP Routine) 01/18/2021 from Last 3 Months or Most Recently Relevant to Health Maintenance Results * SCAN - RADIOLOGY/IMAGING (05/14/2024 9:39 AM ENGLISH COMPOSITION INSTRUCTOR) Anatomical Region Laterality Modality Other Yandel Weaver MD Final Result * Screening Mammogram 2D Bilateral (01/18/2021) Anatomical Region Laterality Modality Breast Bilateral Mammography Narrative 01/18/[address] butt Historical Provider IMG MAMMO PROCEDURES Kim l Result from Last 3 Months or Most Recently Relevant to Health Maintenance Insurance MEDICARE IDPA MEDICARE [facility] MEDICARE Care Teams Labor Service Representative Relationship Specialty Start Date End Date Yandel Weaver MD [address] [address] PCP - General Internal Medicine 02/24/20
[2024-08-03 10:49] VITALS: BP 150/91; PULSE 108; RESP 18; TEMP 36.3; O2SAT 97; BMI 28.4
--- NOTE | 2024-08-03 10:53 | PM.HPGS ---
History of Present Illness History of Present Illness Consent: Risks, benefits, and alternatives have been discussed and questions answered. Patient agrees to proceed with procedure. Chief complaint: Dysphagia, Esophageal obstruction Narrative: Mariella Lr is a 49 year old female here for another EGD, she is mentally disabled and lives in a skilled nursing (family is here), history of dysphagia for solid food that required balloon dilation because of ring. Review of Systems Review of Systems: All systems reviewed & are unremarkable except as noted in HPI and below PMFSH Past Medical History Medical History (Updated 06/07/24 @ 16:17 by Janeen Julio APN-C) Esophageal stricture Social History Social History Smoking status: Never smoker Alcohol intake: never Substance use: never Substance use type: does not use Living arrangements: skilled nursing Additional living arrangements comments: PATIENT WILL BE STAYING WITH MOTHER AND FATHER FOR A COUPLE DAYS BEFORE AND AFTER PROCEDURE Spiritual care concerns: No Meds Home Medications and Allergies Home Medications ?Medication ?Instructions ?Recorded ?Confirmed ?Type Colace 100 mg PO PRN 09/26/21 07/19/24 History acyclovir 400 mg tablet 400 mg PO DAILY 09/26/21 08/03/24 History carbamazepine 100 mg chewable 200 mg PO BID 09/26/21 08/03/24 History tablet medroxyprogesterone 150 mg/mL 150 mg IM [id number] 05/27/23 07/19/24 History intramuscular suspension pantoprazole 20 mg tablet,delayed 20 mg PO QAM 05/27/23 08/03/24 History release Allergies Allergy/AdvReac Type Severity Reaction Status Date / Time peanut Allergy Mild Unknown Verified 08/03/24 10:48 Cauliflower Allergy Mild Unknown Uncoded 08/03/24 10:48 Vital Signs Vital Signs - 24 hr 08/03/24 10:49 Temperature 97.4 F L Pulse Rate 108 H Respiratory Rate 18 Blood Pressure 150/91 H Pulse Oximetry 97 Oxygen Delivery Room Air Exam Const: General: alert Other: poor communication Resp: Auscultation: clear to auscultation bilaterally Cardio: Rhythm: regular rhythm GI: GI Palp: Yes Soft to palpation and No Tenderness to palpation present (GI) Assessment and Plan Assessment and plan (1) Esophageal stricture: Code(s): K22.2 - Esophageal obstruction Status: Acute Assessment and Plan: egd with possible balloon dilation (2) Dysphagia: Code(s): R13.10 - Dysphagia, unspecified Status: Acute (3) Developmental disability: Code(s): F89 - Unspecified disorder of psychological development Status: Acute
[2024-08-03] MEDS: LACTATED RINGERS 1,000 ML 150 ML IV CONT (10:58)
--- NOTE | 2024-08-03 10:59 | WPDANESEPPF ---
Anes - Initial Pre Proc Eval Procedure: Operation Date: 08/03/24 14:30 Proposed Procedures p Esophagogastroduodenoscopy - Isael De Anda MD Date/Time: 08/03/24 10:59 Surgeon: Isael De Anda MD Pre Op Diagnosis: Dysphagia, Esophageal obstruction Patient Data Age: 49 Gender: F Height: 1.52 m Weight: 66.1 kg Last Vital Signs Temp 36.3 C L 08/03/24 10:49 Pulse 108 H 08/03/24 10:49 Resp 18 08/03/24 10:49 BP 150/91 H 08/03/24 10:49 Pulse Ox 97 08/03/24 10:49 O2 Del Method Room Air 08/03/24 10:49 Allergies Allergy/AdvReac Type Severity Reaction Status Date / Time peanut Allergy Mild Unknown Verified 08/03/24 10:48 Cauliflower Allergy Mild Unknown Uncoded 08/03/24 10:48 Home Medications ?Medication ?Instructions ?Recorded ?Confirmed ?Type Colace 100 mg PO PRN 09/26/21 07/19/24 History acyclovir 400 mg tablet 400 mg PO DAILY 09/26/21 08/03/24 History carbamazepine 100 mg chewable 200 mg PO BID 09/26/21 08/03/24 History tablet medroxyprogesterone 150 mg/mL 150 mg IM [id number] 05/27/23 07/19/24 History intramuscular suspension pantoprazole 20 mg tablet,delayed 20 mg PO QAM 05/27/23 08/03/24 History release Patient hx anesthesia problems: none Family hx anesthesia problems: none Results Review: All pre-operative results and documents have been reviewed as part of the pre-operative evaluation. [facility] Past Medical History Medical History (Updated 06/07/24 @ 16:17 by RAMONA Morton) Esophageal stricture Social History Social History Smoking status: Never smoker Alcohol intake: never Substance use: never Substance use type: does not use Living arrangements: skilled nursing Additional living arrangements comments: PATIENT WILL BE STAYING WITH MOTHER AND FATHER FOR A COUPLE DAYS BEFORE AND AFTER PROCEDURE Spiritual care concerns: No Anes - Eval Final PreProcedure Day of Procedure 08/03/24 10:59 Patient weight: overweight Heart: regular rate and rhythm Lungs: clear to auscultation Airway: Mallampati scale class II Neurological: alert and oriented Last oral intake: >/= 8 hours ASA classification: III Emergent: no Anesthetic plan: proceed Anesthesia type and monitoring: general GIVS and standard monitoring Results Review: All pre-operative results and documents have been reviewed as part of the pre-operative evaluation. Informed Consent: The patient's anesthetic plan and its attendant risks and benefits were discussed with the patient/family/POA. Questions were solicited and answers provided to the satisfaction of the patient/family/POA.
[2024-08-03 11:18] VITALS: BP 146/100; PULSE 105; RESP 22; O2SAT 91
[2024-08-03 11:28] VITALS: BP 142/84; PULSE 108; RESP 27; O2SAT 94
[2024-08-03 11:38] VITALS: BP 123/81; PULSE 105; RESP 27; O2SAT 95
== END 2024-08-03 11:55 | disposition home or self-care (01) ==
PROVIDERS: PCP Internal Medicine; Referring Provider Internal Medicine; Visit Provider Internal Medicine Gastroenterology
PROC: 0DJ08ZZ Inspection of Upper Intestinal Tract, Via Natural or Artificial Opening Endoscopic (ICD-10-PCS; CPT 43239; principal; 2024-08-03 14:30)
DX: K22.2 Esophageal obstruction (principal); K29.50 Unspecified chronic gastritis without bleeding; F89 Unspecified disorder of psychological development
CPT/HCPCS: 43239; 43249; 88305; 88342; C1726; J2003; J2704; J7120